=== PATIENT | female | born 1995 | race Caucasian/White ===

== ENCOUNTER 2024-02-20 17:38 | Emergency (ER) | payer MEDICAID, SELFPAY ==
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
[2024-02-20 18:30] VITALS: BP 157/88; PULSE 79; RESP 18; TEMP 36.8; O2SAT 98; BMI 35.9
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
--- NOTE | 2024-02-20 19:20 | MHC.EDTECH ---
Patient brought into triage area,labs drawn and sent to lab,patient brought back to the [facility].
[2024-02-20 19:33] LABS: MANUAL DIFF FLAG NO
[2024-02-20 19:34] LABS: Basophils Absolute Auto 0.1 X10*3/uL (0.0-0.2); Basophils Percent Auto 0.7 % (0-2); Eosinophils Absolute Auto 0.9 X10*3/uL (0.0-0.4); Eosinophils Percent Auto 6.8 % (0-4); Hemoglobin 12.6 g/dl (12.0-16.0); Imm Gran Abs Auto 0.05 X10*3/uL (0.00-0.03); Imm Gran Pct Auto 0.4 % (0.0-0.4); Lymphocytes Absolute Auto 2.5 X10*3/uL (1.2-4.9); Lymphocytes Percent Auto 18.1 % (20-40); Mean Corpuscular HGB Conc 32.3 g/dl (31.0-35.0); Mean Corpuscular Hemoglobin 28.3 pg (27.0-33.0); Mean Corpuscular Volume 87.6 fL (80.0-98.0); Mean Platelet Volume 9.9 fL (9.4-12.3); Monocytes Absolute Auto 0.8 X10*3/uL (0.1-1.2); Monocytes Percent Auto 5.8 % (2-11); Neutrophils Absolute Auto 9.5 x10*3/uL (2.0-8.3); Neutrophils Percent Auto 68.2 % (45-73); Platelet Count 333 X10*3/uL (160-400); Red Blood Count 4.45 X10*6/uL (4.20-5.50); Red Cell Distribution Width 14.6 % (11.0-16.0); White Blood Count 13.9 X10*3/uL (4.8-10.8)
[2024-02-20 19:50] LABS: Anion Gap 13 (12-20); Blood Urea Nitrogen 11 mg/dL (9-16); Carbon Dioxide 29 mmol/L (22-29); Chloride 104 mmol/L (96-108); Creatinine Clr Calc Pharmacy 108.8; Estimated Glomerular Filt Rate > 60; Glucose Random 103 mg/dL (60-115); Potassium 3.7 mmol/L (3.3-5.1); Sodium 142 mmol/L (135-145)
[2024-02-20 21:28] VITALS: BP 137/85; PULSE 62; RESP 20; TEMP 36.9; O2SAT 98
[2024-02-20 22:25] LABS: HCG Quantitative < 2 mIU/mL
[2024-02-20] MEDS: Ketorolac Tromethamine 30 MG/ML VIAL IM (22:35)
[2024-02-20] MEDS: Lidocaine 4 % Patch ADH..PATCH 1 PATCH TRANSDERMA (22:35)
--- NOTE | 2024-02-20 22:41 | PC.NURSE ---
medication administered per provider order. gina bandage applied to LLE. crutch training provided to pt.
[2024-02-20 22:54] VITALS: BP 137/85; PULSE 62; RESP 20; TEMP 36.9; O2SAT 98
== END 2024-02-20 22:55 | disposition home or self-care (01) ==
PROVIDERS: Physician Assistant; Emergency Provider Emergency Medicine Emergency Medical Services; PCP Nurse Practitioner Primary Care
DX: S13.4XXA Sprain of ligaments of cervical spine, initial encounter (principal); S06.0X0A Concussion without loss of consciousness, initial encounter; R51.9 Headache, unspecified; M79.10 Myalgia, unspecified site; M25.552 Pain in left hip; V43.52XA Car driver injured in collision with other type car in traffic accident, initial encounter; Y93.9 Activity, unspecified; Y92.488 Other paved roadways as the place of occurrence of the external cause; Y99.8 Other external cause status; Z79.899 Other long term (current) drug therapy
CPT/HCPCS: 36415; 73502; 73552; 80048; 84702; 85025; 96372; 99283; 99284; J1885

== ENCOUNTER 2024-03-12 18:07 | Outpatient (REF) | payer MEDICAID, SELFPAY ==
[2024-03-12 18:37] LABS: Creatinine Urine 224.04 mg/dL
[2024-03-13 03:46] LABS: CT PCR NOT DETECTED (Not Detect.); NG PCR NOT DETECTED (Not Detect.)
[2024-03-13 15:44] LABS: Bacterial Vaginosis PCR POSITIVE (Negative); Candida Group PCR NOT DETECTED (Not Detect); Candida glab krusei PCR NOT DETECTED (Not Detect); Trichomonas vaginalis PCR NOT DETECTED (Not Detect)
== END 2024-03-12 18:08 | disposition home or self-care (01) ==
LOC: HO.HHCLNP 18:07
PROVIDERS: Visit Provider Nurse Practitioner Primary Care
DX: Z11.3 Encounter for screening for infections with a predominantly sexual mode of transmission (principal)
CPT/HCPCS: 0352U; 82043; 82570; 87491; 87591

== ENCOUNTER 2024-09-16 11:51 | Outpatient (REF) | payer MEDICAID, SELFPAY ==
[2024-09-16 14:16] LABS: HIV AB/AG Nonreactive (Nonreactive); HIV Num 1 0.06 S/CO (0.00-0.99); ~Hepatitis C Antibody Nonreactive (Nonreactive)
[2024-09-16 14:18] LABS: TSH reflex Free T4 1.04 uIU/mL (0.32-4.0)
[2024-09-17 11:53] LABS: CT PCR DETECTED (Not Detect.); NG PCR NOT DETECTED (Not Detect.)
[2024-09-17 12:47] LABS: RPR Rapid Plasma Reagin NON-REACTIVE (NON-REACTIVE)
[2024-09-17 14:57] LABS: Bacterial Vaginosis PCR POSITIVE (Negative); Candida Group PCR NOT DETECTED (Not Detect); Candida glab krusei PCR NOT DETECTED (Not Detect); Trichomonas vaginalis PCR NOT DETECTED (Not Detect)
== END 2024-09-16 11:52 | disposition home or self-care (01) ==
LOC: HO.HHCL 11:51
PROVIDERS: Nurse Practitioner Primary Care; Visit Provider Internal Medicine Geriatric Medicine
DX: Z11.3 Encounter for screening for infections with a predominantly sexual mode of transmission (principal); L65.9 Nonscarring hair loss, unspecified; N89.8 Other specified noninflammatory disorders of vagina
CPT/HCPCS: 36415; 81515; 84443; 86592; 86803; 87389; 87491; 87591

== ENCOUNTER 2024-10-16 11:40 | Outpatient (REF) | payer MEDICAID, SELFPAY | END 2024-10-16 11:41 | disposition home or self-care (01) | LOC: HO.LNP 11:40 | PROVIDERS: Visit Provider Advanced Practice Midwife | DX: Z12.4 Encounter for screening for malignant neoplasm of cervix (principal); Z97.5 Presence of (intrauterine) contraceptive device | CPT/HCPCS: 88175 ==